=== PATIENT | female | born 1940 | race Caucasian/White ===

== ENCOUNTER → 2018-10-12 | Outpatient (CLI) | payer OTHER | END | disposition home or self-care (01) | LOC: SHCH 11:40 | PROVIDERS: ATTEND Internal Medicine Cardiovascular Disease | DX: I34.0 Nonrheumatic mitral (valve) insufficiency (principal); I25.10 Atherosclerotic heart disease of native coronary artery without angina pectoris | CPT/HCPCS: 93306 ==

== ENCOUNTER → 2018-10-20 | Outpatient (CLI) | payer OTHER ==
[~2018-10-20] MED LIST: REGADENOSON 0.4 MG/5 ML PF SYG IVP SCH
== END | disposition home or self-care (01) ==
LOC: SHCH 08:05
PROVIDERS: ATTEND Internal Medicine Cardiovascular Disease
DX: I25.10 Atherosclerotic heart disease of native coronary artery without angina pectoris (principal); I25.9 Chronic ischemic heart disease, unspecified
CPT/HCPCS: 78452; 93017; 96374; A9500 ×2; J2785

== ENCOUNTER 2018-11-10 05:40 | Day surgery (SDC) | payer OTHER ==
[2018-11-08 10:09] VITALS: BP 132/69
[2018-11-08 10:14] LABS: BASOPHILS % (AUTO) 0.7 % (0.0-5.0); EOSINOPHILS % (AUTO) 2.6 % (0.0-8.0); MEAN CORPUSCULAR HEMOGLOBIN 31.3 pg (27.0-33.0); MEAN CORPUSCULAR HGB CONC 33.2 g/dL (32.0-36.0); MEAN CORPUSCULAR VOLUME 94.4 fL (79-99); MONOCYTES % (AUTO) 11.8 % (3.0-13.0); NEUTROPHILS % (AUTO) 50.9 % (40.0-77.0); PLATELET COUNT (AUTO) 209 K/uL (130-400); RED BLOOD CELL COUNT(AUTO) 4.13 MIL/uL (4.00-5.50); RED CELL DISTRIBUTION WIDTH 13.2 % (11.0-15.5); WHITE BLOOD COUNT (AUTO) 5.2 K/uL (4.8-10.8)
[2018-11-08 10:26] LABS: APPEARANCE,URINE Clear (CLEAR); BILIRUBIN,URINE Negative (NEGATIVE); COLOR,URINE Yellow (YELLOW); GLUCOSE, URINE (UA) Negative (NEGATIVE); KETONES,URINE Negative (NEGATIVE); LEUKOCYTE ESTERASE ,URINE Small (NEGATIVE); NITRATE,URINE Negative (NEGATIVE); OCCULT BLOOD,URINE Negative (NEGATIVE); PH,URINE 7.5 (5.0-8.0); PROTEIN,URINE Negative (NEGATIVE)
[2018-11-08 10:27] LABS: INR 1.02 (0.85-1.15); PARTIAL THROMBOPLASTIN TIME 28.2 SEC (26.3-35.5); PROTHROMBIN TIME 10.7 SEC (9.6-11.6)
[2018-11-08 11:02] LABS: CREATININE 0.7 mg/dL (0.5-1.5); POTASSIUM 3.7 mmol/L (3.5-5.1)
[2018-11-08 11:37] LABS: AMORPHOUS SEDIMENT,UR Moderate /LPF (None Seen); BACTERIA,URINE Rare /HPF (None Seen); RBC,URINE None Seen /HPF (0-1); TRIPLE PHOSPHATE CRYSTAL,UR Moderate /LPF (None Seen)
--- NOTE | 2018-11-09 10:51 | NUR ---
ABNORMAL LABS URINALYSIS RESULT REPORTED TO ERON MAGALLON. NO FURTHER ORDERS GIVEN.
[2018-11-10] VITALS (13 sets, daily range): BP systolic 102–136; BP diastolic 47–70
[~2018-11-10] VITALS: Ht 161.3 cm; Wt 82.6 kg
[~2018-11-10 05:40] MED LIST changes: +ACET-2893 PO; +ASPI-555 PO; +ATOR20TA65 PO; +CALC-691 PO; +CLOP75TA14 PO; +HYDR25TA PO; +NITR0.4T50 SL; +PROBIO 5 PO; -REGADENOSON 0.4 MG/5 ML PF SYG IVP SCH; +[UNRECOGNIZED DRUG - OTHER] PO
--- NOTE | 2018-11-10 06:10 | NUR ---
RECEIVED ,AMBULATORY ,AFTER VS,ACCOMPANIED TO BR,,,,,MADE COMFORTABLE,,CALL OLMSTEAD IN REACH
[2018-11-10] MEDS ORDERED: IOHEXOL-350 50ML VIAL IV ONE (07:11)
[2018-11-10] MEDS ORDERED: LIDOCAINE HCL 2% 20ML ONE (07:11)
[2018-11-10] MEDS ORDERED: IOHEXOL 350 MG/ML 100ML INFUS..BTL IV ONE (07:11)
--- NOTE | 2018-11-10 07:21 | NUR ---
TO MECHANICAL DEVELOPER PROVER
[2018-11-10] MEDS ORDERED: LABETALOL HCL 5 MG/ML 20ML VIAL IV ONE (07:56)
[2018-11-10] MEDS ORDERED: SODIUM CHLORIDE 0.9% 1000ML 1,000 ML IV SCH (08:00)
[2018-11-10] MEDS ORDERED: METOPROLOL TARTRATE 1 MG/ML 5ML VIAL IV ONE (08:00)
[2018-11-10] MEDS ORDERED: HYDRALAZINE HCL 20 MG/ML VIAL ONE (08:09)
[2018-11-10] MEDS ORDERED: NITROGLYCERIN 4.1 GM SPRAY TL ONE (08:12)
[2018-11-10] MEDS ORDERED: ACETAMINOPHEN-CODEINE 300/30MG TAB PO PRN ×2 (08:15)
--- NOTE | 2018-11-10 08:50 | NUR ---
DTR ALECIA IN TO TALK WITH SPOUSE AND PT.,,AWARE OF PT WITH TREMORS ,ORDER GIVEN FOR BENADRYL
[2018-11-10] MEDS ORDERED: DiphenhydrAMINE HCL 50 MG/ML VIAL ONE (08:57)
[2018-11-10] MEDS ORDERED: METOPROLOL TARTRATE 25 MG TAB PO SCH (09:00)
--- NOTE | 2018-11-10 09:00 | NUR ---
PRESSURE APPLIED TO RT GROIN BY SELMA SENA,SM HEMATOMA,,PEDAL AND TIBIAL PULSES PRESENT WITH DOPPLER,PT COMFORTABLE
--- NOTE | 2018-11-10 09:10 | NUR ---
SITE TOP TO RT GROIN SOFT PER SELMA RN STOPPED PRESSURE
--- NOTE | 2018-11-10 09:11 | NUR ---
PRESSURE SITE CONTINUED TO BE MONITORED BY ARTUR RN ,AND SELF ,SITE CONTINUES TO BE SOFT ,NO HEMATOMA OR BLEEDING,PULSES PRESENT,PT DENIES DISCOMFORT
--- NOTE | 2018-11-10 10:15 | NUR ---
DR ALSTON AWARE OF LATEST BP-102/50---58,,AND FOR HER TO START HER METOPROLOL TONIGHT
--- NOTE | 2018-11-10 12:50 | NUR ---
ASSISTED TO BR ,ASSISTED BY RAJESH SENA,DOES WELL ,VOIDS AND BACK TO BED,INSTRUCTIONS GIVEN TO SPOUSE AND PT ,VERBALIZE UNDERSTANDING.,BOTH RETURNED DEMONSTRATION,EARLIER AT 1145 TO SELMA SENA AND SELF,
--- NOTE | 2018-11-10 13:25 | NUR ---
PRIOR TO GOING HOME ,DRESSING CHANGED BY JENNIE SENA ,D-STAT APPLIED ,NO BLEEDING ,NO HEMATOMA NOTED ,TO CAR VIA W/C,,REINFORCED ON CHECKING SITE,AND TO SPOUSE ,BOTH VERBALIZE UNDERSTANDING,,,DRESSING TO SITE CLEAN AND DRY
== END 2018-11-10 13:40 | disposition home or self-care (01) ==
LOC: DAH 05:40
PROVIDERS: ATTEND Internal Medicine Cardiovascular Disease
DX: I25.118 Atherosclerotic heart disease of native coronary artery with other forms of angina pectoris (principal); E78.00 Pure hypercholesterolemia, unspecified; I11.9 Hypertensive heart disease without heart failure; Z82.49 Family history of ischemic heart disease and other diseases of the circulatory system; Z79.899 Other long term (current) drug therapy; Z79.01 Long term (current) use of anticoagulants; Z68.32 Body mass index [BMI] 32.0-32.9, adult
CPT/HCPCS: 36415; 71045; 80048; 81001; 85025; 85610; 85730; 93005; 93458; A4606; C1894; J0360; J1200; J1644 ×2; J3490 ×3; J7030; Q9965; Q9967 ×2

== ENCOUNTER 2018-11-22 11:47 | Observation (INO) | payer OTHER ==
[~2018-11-22] VITALS: Ht 157.5 cm; Wt 90.0 kg
[2018-11-22 13:11] LABS: BILIRUBIN,URINE Negative (NEGATIVE); COLOR,URINE Yellow (YELLOW); GLUCOSE, URINE (UA) Negative (NEGATIVE); KETONES,URINE Negative (NEGATIVE); LEUKOCYTE ESTERASE ,URINE Negative (NEGATIVE); NITRATE,URINE Negative (NEGATIVE); OCCULT BLOOD,URINE Negative (NEGATIVE); PROTEIN,URINE Negative (NEGATIVE)
[2018-11-22 13:13] LABS: APPEARANCE,URINE CLEAR (CLEAR)
[2018-11-22 13:17] LABS: BASOPHILS % (AUTO) 0.6 % (0.0-5.0); EOSINOPHILS % (AUTO) 3.9 % (0.0-8.0); HEMATOCRIT 38.9 % (36-48); LYMPHOCYTES % (AUTO) 30.6 % (21.0-51.0); MEAN CORPUSCULAR HEMOGLOBIN 30.9 pg (27.0-33.0); MEAN CORPUSCULAR HGB CONC 33.1 g/dL (32.0-36.0); MEAN CORPUSCULAR VOLUME 93.3 fL (79-99); MONOCYTES % (AUTO) 11.8 % (3.0-13.0); NEUTROPHILS % (AUTO) 53.1 % (40.0-77.0); NUCLEATED RED BLOOD CELLS 0.1 % (0.0-0.19); PLATELET COUNT (AUTO) 216 K/uL (130-400); RED BLOOD CELL COUNT(AUTO) 4.17 MIL/uL (4.00-5.50); RED CELL DISTRIBUTION WIDTH 13.1 % (11.0-15.5)
[2018-11-22 13:38] LABS: CREATININE 0.6 mg/dL (0.5-1.5); POTASSIUM 3.8 mmol/L (3.5-5.1)
[2018-11-22 13:47] LABS: ALBUMIN 3.8 g/dL (3.5-5.0); BILIRUBIN,TOTAL 0.9 mg/dL (0.2-1.0); T4 (THYROXINE) 8.1 mcg/dL (4.7-13.3); THYROID STIMULATING HORMONE 2.48 uIU/mL (0.36-3.74); TOTAL PROTEIN, SERUM 8.1 g/dL (6.0-8.3)
[2018-11-22] MEDS ORDERED: ISOS30TA6 PO (13:55)
[2018-11-22] MEDS ORDERED: METO25TA6 PO (13:55)
[2018-11-22] MEDS ORDERED: GLUCAGON 1MG KIT 1 MG ML IM PRN (14:00)
[2018-11-22] MEDS ORDERED: POTASSIUM CHLORIDE 20 MEQ ERTAB PO PRN (14:00)
[2018-11-22] MEDS ORDERED: DEXTROSE 50%-WATER 50 ML DISP.SYRIN IV PRN (14:00)
[2018-11-22] MEDS ORDERED: ACETAMINOPHEN 325 MG TAB PO PRN ×2 (14:00)
[2018-11-22] MEDS ORDERED: POTASSIUM CHLORIDE 10% ELIXIR 20 MEQ/15 ML UDCUP PO PRN (14:00)
[2018-11-22] MEDS ORDERED: POTASSIUM CHLORIDE 20MEQ/100ML 100 ML IV PRN (14:00)
[2018-11-22] MEDS ORDERED: SODIUM CHLORIDE 0.9% 1000ML 1,000 ML IV SCH (14:00)
[2018-11-22] MEDS ORDERED: LIDOCAINE HCL-MPF 1% 2ML VIAL IJ PRN (14:00)
[2018-11-22 14:20] VITALS: BP 148/75
[2018-11-22 16:00] VITALS: BP 141/66
[2018-11-22] MEDS: INSULIN R PO SSI SQ SCH ×2 (16:19→21:00)
[2018-11-22 19:00] VITALS: BP 125/61
[2018-11-22] MEDS ORDERED: ATORVASTATIN CALCIUM 20 MG TABLET PO SCH (21:00)
[2018-11-22 23:00] VITALS: BP 138/68
[2018-11-23 03:00] VITALS: BP 145/79
[2018-11-23] MEDS: INSULIN R PO SSI SQ SCH ×3 (06:02→16:13)
[2018-11-23 07:53] VITALS: BP 120/70
--- NOTE | 2018-11-23 08:30 | NUR ---
ASSESSMENT PT IS AAOX4 DENIES CP DENIES SOB DENIES NV NO COMPLAINTS. SITTING UPRIGHT IN BED, EATING BREAKFAST. CALL LIGHT WITHIN REACH. IS AT BEDSIDE.
[2018-11-23] MEDS ORDERED: ASPIRIN 81MG TAB.CHEW PO SCH (09:00)
[2018-11-23] MEDS ORDERED: CLOPIDOGREL BISULFATE 75 MG TAB PO SCH (09:00)
[2018-11-23 11:22] VITALS: BP 120/69
--- NOTE | 2018-11-23 13:57 | NUR ---
DR RIVERA ROUNDED ORDERS RECEIVED
[2018-11-23 15:33] VITALS: BP 118/73
--- NOTE | 2018-11-23 15:57 | NUR ---
CT REPORT RECEIVED RELAYED TO NICOLE. ORDERED OK TO DC HOME TODAY. FOLLOW UP ON WEDNESDAY AT CLINIC.
--- NOTE | 2018-11-23 16:31 | NUR ---
DISCHARGE INSTRUCTIONS GIVEN TO PATIENT AND . AGREE TO TAKE MEDICATIONS ORDERED, AGREE TO FOLLOW UP WITH DR RIVERA ON WEDNESDAY OUTPATIENT. ALL QUESTIONS ANSWERED. PIV REMOVED CATH TIP INTACT, TELE PACK REMOVED. ALL BELONGINGS TAKEN, DOWN VIA WC WITH FAMILY AND NURSE AIDE.
== END 2018-11-23 16:36 | disposition home or self-care (01) ==
LOC: EDH 11:47 → EDHIP 11:48 → INTOOBSV 11:48 → 2BH 14:10 → 2AH 11-23 07:18
PROVIDERS: ADMIT Family Medicine; ATTEND Family Medicine
DX: I95.9 Hypotension, unspecified (principal); R53.1 Weakness; R41.82 Altered mental status, unspecified; E78.5 Hyperlipidemia, unspecified; I10 Essential (primary) hypertension; I25.10 Atherosclerotic heart disease of native coronary artery without angina pectoris
CPT/HCPCS: 36415; 70450; 71045; 76705; 76775; 80053; 81003; 82550; 82948 ×5; 84436; 84443; 84484; 85025; 93005; 99284; G0378 ×29

== ENCOUNTER → 2018-12-28 | Outpatient (CLI) | payer OTHER ==
[~2018-12-28] MED LIST changes: -HYDR25TA PO; -NITR0.4T50 SL
== END | disposition home or self-care (01) ==
LOC: RAH 12:53
PROVIDERS: ATTEND Family Medicine
DX: R42 Dizziness and giddiness (principal); A88.1 Epidemic vertigo
CPT/HCPCS: 93880

== ENCOUNTER → 2019-06-20 | Outpatient (CLI) | payer OTHER | END | disposition home or self-care (01) | LOC: RAH 14:29 | PROVIDERS: ATTEND Family Medicine | DX: I73.9 Peripheral vascular disease, unspecified (principal); R60.0 Localized edema; I70.0 Atherosclerosis of aorta | CPT/HCPCS: 93925; 93971 ==

== ENCOUNTER → 2019-06-26 | Outpatient (CLI) | payer OTHER | END | disposition home or self-care (01) | LOC: OIH 16:25 | PROVIDERS: ATTEND Family Medicine | DX: M19.071 Primary osteoarthritis, right ankle and foot (principal); M79.89 Other specified soft tissue disorders; M85.871 Other specified disorders of bone density and structure, right ankle and foot; M85.872 Other specified disorders of bone density and structure, left ankle and foot | CPT/HCPCS: 73610; 73630 ==

== ENCOUNTER → 2020-01-23 | Outpatient (CLI) | payer OTHER | END | disposition home or self-care (01) | LOC: OIH 10:30 | PROVIDERS: ATTEND Family Medicine | DX: M17.11 Unilateral primary osteoarthritis, right knee (principal); E83.59 Other disorders of calcium metabolism; M25.461 Effusion, right knee | CPT/HCPCS: 73562 ==

== ENCOUNTER 2020-07-16 16:19 | Observation (INO) | payer OTHER ==
[~2020-07-16] VITALS: Ht 160 cm; Wt 86.1 kg
[~2020-07-16 16:19] MED LIST changes: -ASPI-555 PO; +ASPI-556 PO
[2020-07-16 16:57] LABS: BASOPHILS % (AUTO) 0.7 % (0.0-5.0); EOSINOPHILS % (AUTO) 1.5 % (0.0-8.0); HEMATOCRIT 40.4 % (36-48); LYMPHOCYTES % (AUTO) 23.7 % (21.0-51.0); MEAN CORPUSCULAR HEMOGLOBIN 31.2 pg (27.0-33.0); MEAN CORPUSCULAR HGB CONC 32.9 g/dL (32.0-36.0); MEAN CORPUSCULAR VOLUME 94.8 fL (79-99); MONOCYTES % (AUTO) 10.5 % (3.0-13.0); NEUTROPHILS % (AUTO) 63.4 % (40.0-77.0); PLATELET COUNT (AUTO) 188 K/uL (130-400); RED BLOOD CELL COUNT(AUTO) 4.26 MIL/uL (4.00-5.50); RED CELL DISTRIBUTION WIDTH 12.1 % (11.0-15.5)
[2020-07-16 17:08] LABS: INR 0.99 (0.85-1.15); PARTIAL THROMBOPLASTIN TIME 25.9 SEC (26.3-35.5); PROTHROMBIN TIME 10.7 SEC (9.6-11.6)
[2020-07-16 17:10] LABS: CREATININE 0.7 mg/dL (0.5-1.5); POTASSIUM 4.7 mmol/L (3.5-5.1)
[2020-07-16 17:15] LABS: ALBUMIN 3.7 g/dL (3.5-5.0); BILIRUBIN,TOTAL 0.7 mg/dL (0.2-1.0); TOTAL PROTEIN, SERUM 7.5 g/dL (6.0-8.3)
[2020-07-16] MEDS ORDERED: SODIUM CHLORIDE 0.9% 1000ML 1,000 ML IV ONE (17:26)
[2020-07-16 17:34] LABS: B-TYPE NATRIURETIC PEPTIDE 45 pg/mL (0-100)
[2020-07-16 19:41] LABS: APPEARANCE,URINE Clear (CLEAR); BILIRUBIN,URINE Negative (NEGATIVE); COLOR,URINE Yellow (YELLOW); GLUCOSE, URINE (UA) Negative (NEGATIVE); KETONES,URINE Trace mg/dL (NEGATIVE); LEUKOCYTE ESTERASE ,URINE Negative (NEGATIVE); NITRATE,URINE Negative (NEGATIVE); OCCULT BLOOD,URINE Negative (NEGATIVE); PH,URINE 7.5 (5.0-8.0); PROTEIN,URINE Negative (NEGATIVE)
[2020-07-16] MEDS ORDERED: POTASSIUM CHLORIDE 10% ELIXIR 20 MEQ/15 ML UDCUP PO PRN (20:30)
[2020-07-16] MEDS ORDERED: LIDOCAINE HCL-MPF 1% 2ML VIAL IV PRN (20:30)
[2020-07-16] MEDS: SODIUM CHLORIDE 0.9% 1000ML 1,000 ML IV SCH (20:30)
[2020-07-16] MEDS ORDERED: ONDANSETRON HCL 4 MG/2 ML VIAL IV PRN (20:30)
[2020-07-16] MEDS ORDERED: POTASSIUM CHLORIDE 20MEQ/100ML 100 ML IV PRN (20:30)
[2020-07-16] MEDS ORDERED: ACETAMINOPHEN 325 MG TAB PO PRN (20:30)
[2020-07-16] MEDS ORDERED: DiphenhydrAMINE HCL 50 MG/ML VIAL IV PRN (20:30)
[2020-07-16] MEDS ORDERED: POTASSIUM CHLORIDE 20 MEQ ERTAB PO PRN (20:30)
[2020-07-16] MEDS ORDERED: MORPHINE SULFATE 2 MG/ML 1ML SYG IV PRN (20:30)
[2020-07-16] MEDS ORDERED: MAG HYDROX/AL HYDROX/SIMETH ES 30 ML SUSP UDCUP PO PRN (20:30)
[2020-07-16] MEDS ORDERED: LABETALOL HCL 5 MG/ML 20ML VIAL IV PRN ×2 (20:45)
[2020-07-17 04:59] LABS: BASOPHILS % (AUTO) 0.8 % (0.0-5.0); EOSINOPHILS % (AUTO) 2.3 % (0.0-8.0); HEMATOCRIT 35.2 % (36-48); LYMPHOCYTES % (AUTO) 27.7 % (21.0-51.0); MEAN CORPUSCULAR HEMOGLOBIN 31.1 pg (27.0-33.0); MEAN CORPUSCULAR HGB CONC 32.4 g/dL (32.0-36.0); MEAN CORPUSCULAR VOLUME 95.9 fL (79-99); MONOCYTES % (AUTO) 11.9 % (3.0-13.0); NEUTROPHILS % (AUTO) 56.9 % (40.0-77.0); PLATELET COUNT (AUTO) 155 K/uL (130-400); RED BLOOD CELL COUNT(AUTO) 3.67 MIL/uL (4.00-5.50); RED CELL DISTRIBUTION WIDTH 11.9 % (11.0-15.5); WHITE BLOOD COUNT (AUTO) 5.1 K/uL (4.8-10.8)
[2020-07-17 05:24] LABS: CREATININE 0.6 mg/dL (0.5-1.5); MAGNESIUM 1.8 mg/dL (1.80-2.40); POTASSIUM 3.7 mmol/L (3.5-5.1); THYROID STIMULATING HORMONE 2.59 uIU/mL (0.36-3.74)
[2020-07-17] MEDS: FAMOTIDINE 20MG TAB 20 MG TAB PO SCH (09:00)
[2020-07-17] MEDS: SODIUM CHLORIDE 0.9% 1000ML 1,000 ML IV SCH ×2 (09:50→23:45)
[2020-07-17] MEDS ORDERED: FAMOTIDINE 20MG TAB 20 MG TAB ONE (10:05)
--- NOTE | 2020-07-17 11:15 | NUR ---
MET WITH PT AT BEDSIDE IN ER FOR DC PLANNING PT STES INDPENDENT, ACTIVE, DRIVES, NO DME, HOME SAFE AND ACCESSIBLE LIVES PATO GAMINO SPOUSE WHO WILL PROVIDE TRANSPORT HAS BP CUFF, FLORES NOT CHECK VS REGUALARLY, DID CHECK DURING THIS PAST EPISODE AND BP WAS WNL BUT PT SYMPTOMATIC AT HOEM. BEING WORKED UP FOR SYNCOPE /ARRYTHMIA. CM TO FOLLOW DCP HOME Addendum: 07/18/20 at 0814 by SUPRIYA RIVERO RN CM Amended: Links added.
[2020-07-17 22:40] VITALS: BP 186/88
--- NOTE | 2020-07-17 22:40 | NUR ---
ADMISSION NOTE: Admitted to floor from ER via stretcher. AOX4. Fully awake and responsive. Ambulatory. VS checked and recorded. Physical assessment done. ( See CPOE flow chart for full assessment. ) Has PIV site to Rt f/a #20g with IVF of NS 1L at 75 ml/hr via dial flow. - patent and intact. Attached to TELE with NSR. Home meds entered. Oriented to room and use of call light. Policies and procedures explained. Agreed and verbalized understanding. Plan of care initiated. Observed for any unusualities. Needs attended and care for. No apparent distress/discomfort noted. For neurology consult in AM as ordered.
[2020-07-17] MEDS ORDERED: FURO20TA4 PO (23:08)
[2020-07-17] MEDS ORDERED: ERGO500014 PO (23:08)
[2020-07-17] MEDS ORDERED: OMEP40CA13 PO (23:08)
[2020-07-17] MEDS ORDERED: MAGN500C15 PO (23:08)
[2020-07-17 23:59] VITALS: BP 158/71
[2020-07-18 04:00] VITALS: BP_SYST 126; BP_SYST 133; BP_SYST 154; BP_DIAS 66; BP_DIAS 75; BP_DIAS 79
[2020-07-18 08:00] VITALS: BP 147/81
--- NOTE | 2020-07-18 08:14 | NUR ---
EXPECT DCP TO HOME WHEN CLEARED BY CARDIO CM TO FOLLOW PRN Addendum: 07/18/20 at 0815 by SUPRIYA RIVERO RN CM Amended: Links added.
[2020-07-18] MEDS ORDERED: FUROSEMIDE 20 MG TABLET PO SCH (09:00)
[2020-07-18] MEDS ORDERED: CLOPIDOGREL BISULFATE 75 MG TAB PO SCH (09:00)
[2020-07-18] MEDS ORDERED: MAGNESIUM OXIDE 400 MG TABLET PO SCH (09:00)
--- NOTE | 2020-07-18 09:05 | NUR ---
DYSPHAGIA MELVA COMPLETED. - S/S OF ASPIRATION AT THIS TIME. RECOMMEND REGULAR SOLIDS, THIN LIQUIDS, PILLS WHOLE WITH LIQUIDS TOLERATED. VENDOR MANAGEMENT ASSOCIATE REVIEWED RESULTS AND RECOMMENDATIONS WITH PATIENT AND NURSE CRISTOPHER. VENDOR MANAGEMENT ASSOCIATE EDUCATED PATIENT ON RISK AND CONSEQUENCES OF ASPIRATION. ALL QUESTIONS ANSWERED AT THIS TIME. Addendum: 07/18/[address] CARLOS ALBERTO HICKEY Amended: Links added.
[2020-07-18] MEDS ORDERED: PNEUMOCOCCAL VACCINE POLYVALENT 0.5 ML/VIAL [PPV] IM ONE (10:00)
[2020-07-18] MEDS ORDERED: FLU VACC QS2020-21(6MOS UP)/PF 60 MCG/0.5 ML ML IM ONE (10:00)
--- NOTE | 2020-07-18 10:06 | NUR ---
RD NOTE Pt admitted due to near syncope, HTN urgency. Pt is currently on a Heart Healthy diet and consuming 100% as per EMR. As per previous EMR, no significant wt change was noted. Pt's BMI is of 33.6. RD recommendation: Diet Education with lifestyle changes. Last bowel movement was 07/17/20. LABS: CHOL 225, LDL CHOL 143, ALB 3.7 Addendum: 07/18/20 at [address] Amended: Links added.
[2020-07-18] MEDS: FAMOTIDINE 20MG TAB 20 MG TAB PO SCH (10:31)
[2020-07-18 12:00] VITALS: BP 143/83
[2020-07-18] MEDS ORDERED: MIDO2.5T PO (12:36)
[2020-07-18] MEDS: SODIUM CHLORIDE 0.9% 1000ML 1,000 ML IV SCH (12:54)
--- NOTE | 2020-07-18 15:21 | NUR ---
RD NOTE Pt seen for TLC diet education. Pt was eager to learn and asks questions concerning her diet. Pt stated being lactose intolerant. Pt was given educational handouts on therapeutic lifestyle change diet. Pt was receptive and verbalized understanding. RD will continue to follow. Contact dietary department for any nutritional concerns. Addendum: 07/18/20 at [address] Amended: Links added.
--- NOTE | 2020-07-18 16:20 | NUR ---
CONFIRMED WITH BRITTANEY GREENBERG FOR BENCHMARK THAT PT IS TO GO HOME WITH NEW RX OF MIDODRINE 2.5 MG PO TID EVEN THOUGH ADMITTING DX IS HYPERTENSIVE URGENCY; SHE STATES REASON FOR RX IS DUE TO ORTHOSTATIC HYPOTENSION.
== END 2020-07-18 17:45 | disposition home or self-care (01) ==
LOC: EDH 16:19 → EDHIP 20:27 → 3CH 07-17 21:36
PROVIDERS: ADMIT Internal Medicine Critical Care Medicine; ATTEND Internal Medicine Critical Care Medicine
DX: R55 Syncope and collapse (principal); R42 Dizziness and giddiness; I25.10 Atherosclerotic heart disease of native coronary artery without angina pectoris; I10 Essential (primary) hypertension; E78.5 Hyperlipidemia, unspecified; K21.9 Gastro-esophageal reflux disease without esophagitis; Z79.02 Long term (current) use of antithrombotics/antiplatelets; Z79.82 Long term (current) use of aspirin; Z79.899 Other long term (current) drug therapy; Z86.73 Personal history of transient ischemic attack (TIA), and cerebral infarction without residual deficits; Z23 Encounter for immunization
CPT/HCPCS: 36415 ×2; 70450; 70544; 70547; 70551; 71045; 71250; 80048; 80053; 80061; 81003; 82550; 83735; 83880; 84443; 84484; 85025 ×2; 85610; 85730; 90732; 92610; 93005; 93306; 93356; 93880; 96360; 96361; 99285; G0008; G0009; G0378 ×5; J7030; Q2035